=== PATIENT | female | born 1980 | race Caucasian/White ===

== ENCOUNTER 2018-05-28 01:10 | Emergency (ER) | payer BC ==
--- NOTE | 2018-05-28 04:52 | ER ---
HISTORY OF PRESENT ILLNESS: The patient is a 37-year-old female, who comes in noting she has urinary retention. She has seen a urologist at the [facility] for this and has a bladder neck obstruction. She notes it is quite rare. The last time she had this problem was approximately 6 months ago. She has discussed self-cathing with her doctor, but has had UTIs in the past, and is concerned about doing it for this reason. The patient is not complaining of dysuria. She is complaining of inability to void. She does not have fever, nausea, vomiting, or other symptoms. ALLERGIES: PERCOCET. MEDICATIONS: The patient is currently on no medications, but notes she was on Flomax when she was younger. We did go ahead and place a Morgan catheter. The patient had 1100 mL of clear yellow urine and felt immediate relief after draining this. The patient notes that normally just a single cath does it and then she goes for a long time without ever having it again. Did discuss with her that if it occurs again, she can come back. We could leave the Morgan in for a day or so. Initial vitals; pulse was 146, blood pressure was 165/96, temperature was 96.5, O2 saturation was 99%, respirations were 28. The patient was rather agitated with the full bladder. Her blood pressure dropped down to 137/84. Heart rate and respiratory rate dropped also. The patient was doing much better after 1100 mL of urine was obtained with the Morgan. The Morgan was removed. The patient was discharged to home in improved condition. FINAL DIAGNOSIS: Urinary retention. GASTON/EFREN /[id number]
== END 2018-05-28 02:00 | disposition home or self-care (01) ==
LOC: LB.ED 01:10
DX: R33.9 Retention of urine, unspecified (principal); Z88.5 Allergy status to narcotic agent
CPT/HCPCS: 51702; 51798; 99283-25